=== PATIENT | female | born 1935 | race Caucasian/White ===

== ENCOUNTER → 2017-01-01 | Outpatient (CLI) | payer OTHER ==
[~2017-01-01] VITALS: Ht 154.9 cm; Wt 67.1 kg
[~2017-01-01] MED LIST: ACETAMINOPHEN325 M1 PO; ALEVE220 MG PO; AMITRIPTYLINE H25 M4 PO; AZITHROMYCIN 2250 MG PO; CENTRUM COMPLE1 EACH PO; COLACE100 MG PO; CYCLOBENZAPRINE10 MG PO; ESTER-C 1,0001 EACH PO; ESTER-C 500 MG1 EAC1 PO; HYDROCODONE-AP1 EAC6 PO; LISINOPRIL5 MG PO; MELOXICAM7.5 MG PO; MUCINEX TA600 MG/TA2 PO; NABUMETONE 500500 M1 PO; NAPROSYN250 MG PO; NEURONTIN 300300 M1 PO; NEURONTIN600 MG PO; NORCO 5-325 TA1 EACH PO; OS-CAL 500+D C1 EACH; PERCOCET 5-3251 EACH PO; ROXICODONE5 MG PO; TRAMADOL 50 MG50 MG PO; VITAMIN D400 UNI1 PO; ZOCOR 10 MG TAB10 MG PO
--- NOTE | ~2017-01-01 | HPC ---
[facility] [address] [place] [address] PAIN MANAGEMENT CONSULTATION Name: MISTY LEVI Room #: REG [facility].#: [id number] Admission: 01/01/17 Attend Phys: Aurelio Koehler DO Discharge: Date of : 37 Report #: [id number] THIS REPORT FOR: //name// CC: Cyrus Koehler DATE OF SERVICE: 01/01/2017 CHIEF COMPLAINT: Low back pain and left lower extremity pain and paresthesias. HISTORY OF PRESENT ILLNESS: As you know, the patient is a very pleasant 81-year-old female who returns today in followup visit, having received precertification to undergo epidural injection under fluoroscopic guidance. The patient is placing a pain score today at approximately 8/10; states her pain is aching, numbness, tingling and burning in sensation; exacerbated with standing, walking, sitting and lying down; improves with epidural injections. She returns today requesting this epidural injection for which we received precertification. ALLERGIES: PROPOXYPHENE, MORPHINE, SULFA, HYDROCODONE. CURRENT MEDICATIONS: Naproxen, guaifenesin, vitamin D, ascorbic acid, simvastatin, lisinopril. SOCIAL HISTORY: The patient denies tobacco, alcohol, IV or illicit drug use. 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 She is working, not receiving workmen's compensation, unaccompanied today. IMAGING: No new imaging available. PHYSICAL EXAMINATION: VITAL SIGNS: Blood pressure 123/65, pulse 78, respiratory rate 18, unlabored. The patient is 98% on room air. Height 5 feet 1 inch tall, weight 148 pounds, BMI calculated 28. GENERAL: Well-developed, well-nourished, well-hydrated 81-year-old female appearing stated age, placing current pain score at 8/10. HEENT: Normocephalic, atraumatic. Pupils equal, round, reactive to light. Speech is fluent. EXTREMITIES: Show no clubbing, no cyanosis, no edema. MUSCULOSKELETAL: Lower extremity strength equal and symmetrical 5/5, some slight giveaway strength noted with hip flexion, knee extension on the left when compared to the right. This is due to pain generation. Seated straight leg raising negative. Supine straight leg raising positive on the left. ASSESSMENT: 1. Symptomatic lumbar radiculopathy. [facility] [address] [place] [address] PAIN MANAGEMENT CONSULTATION Name: MISTY LEVI SPENSER Room #: REG CLI [facility]#: [id number] Admission: 01/01/17 Attend Phys: Aurelio Koehler DO Discharge: Date of : 36 Report #: [id number] 2. Severe and progressively worsening spinal stenosis of lumbar spine. 3. Displacement of lumbar intervertebral disk with radiculopathy. 4. Lumbosacral spondylosis with radiculopathy. 5. Facet arthropathy of the lumbar spine. 6. Chronic intractable pain. PLAN: 1. The patient returns today in followup visit, having received precertification to undergo epidural injection under fluoroscopic guidance. The patient was advised of the risks and the benefits of this requested epidural injection. These risks include but not necessarily limited to bleeding, bruising, infection, worsening pain, no relief of pain, also risk of temporary or permanent muscle weakness, temporary or permanent nerve damage, possible paralysis and . The patient states understood and wished to proceed. 2. No medication changes were made at today's visit. The patient to continue current medical therapy as previously prescribed. 3. The patient will return to our clinic on an as-needed basis for next in a series of epidural injections. DESCRIPTION OF PROCEDURE: L5-S1 left paramedian epidural steroid injection under fluoroscopic guidance. After obtaining written consent, the patient was taken back to fluoroscopy suite, placed in prone position with pillow under abdomen to decrease lumbar lordosis. Skin overlying lumbosacral area then prepped and draped in aseptic fashion. Lumbar intervertebral spaces were identified by AP fluoroscopy. Skin and subcutaneous tissue overlying target site of injection was anesthetized with 3 mL of 1% lidocaine. A 20-gauge 3-1/2 inch Tuohy needle advanced under fluoroscopic guidance towards the epidural space using a left paramedian approach. Epidural space identified using loss of resistance to air technique. After negative aspiration for heme or cerebrospinal fluid, 1 mL of Omnipaque was injected. Lumbar epidurogram was confirmed using both AP and lateral fluoroscopy. After negative aspiration for heme or cerebrospinal fluid, 5 mL of a solution containing 2 mL 40 mg per mL, 80 mg total triamcinolone, 3 mL lidocaine 1% injected slowly. Needle retracted [facility], needle tract flushed with 3 mL 1% lidocaine. Needle then removed. Sterile bandage placed over injection site. No new motor deficits present in the lower extremity following procedure. The patient tolerated procedure well, carefully escorted to the recovery in [facility] [address] [place] [address] PAIN MANAGEMENT CONSULTATION Name: MISTY LEVI Room #: REG [facility]#: [id number] Admission: 01/01/17 Attend Phys: Aurelio Koehler DO Discharge: Date of : 37 Report #: [id number] stable condition. No apparent complications. After meeting discharge criteria, the patient discharged home. <ELECTRONICALLY SIGNED> By: Aurelio Koehler DO 01/02/17 0811 [id number] Aurelio Koehler DO /nt
[2017-01-01 14:10] VITALS: BP 123/65
== END | disposition home or self-care (01) ==
LOC: PAIN 06:35
DX: M51.16 Intervertebral disc disorders with radiculopathy, lumbar region (principal); M48.061 Spinal stenosis, lumbar region without neurogenic claudication; M47.27 Other spondylosis with radiculopathy, lumbosacral region; G89.29 Other chronic pain; Z88.8 Allergy status to other drugs, medicaments and biological substances; Z79.899 Other long term (current) drug therapy

== ENCOUNTER → 2017-11-27 | Outpatient (CLI) | payer OTHER, SELFPAY ==
[~2017-11-27] VITALS: Ht 154.9 cm; Wt 66.3 kg
[~2017-11-27] MED LIST changes: +VALACYCLOVIR1000 MG PO
--- NOTE | ~2017-11-27 | HPC ---
[facility] [address] [place] [address] PAIN MANAGEMENT CONSULTATION Name: MISTY LEVI Room #: REG [facility].#: [id number] Admission: 11/27/17 Attend Phys: Aurelio Koehler DO Discharge: Date of : 37 Report #: [id number] THIS REPORT FOR: //name// CC: Cyrus Koehler DATE OF SERVICE: 11/27/2017 REFERRING PHYSICIAN: Cyrus Marlow MD CHIEF COMPLAINT: Low back pain, left lower extremity pain with paresthesias, intermittent right lower extremity pain. HISTORY OF PRESENT ILLNESS: As you know, the patient is a very pleasant 82-year-old female who returns today in followup visit with recurrent lumbar radicular symptoms. Majority of the patient's pain begins in low back, radiates down the left leg, but periodically, has now been presenting on the right side. She returns today in followup visit requesting to undergo epidural injection under fluoroscopic guidance. The patient, as you are aware, has done very well with previous epidural injections. She reports the last injection provided pain relief of approximately 80% lasting for a long period of time. She is now reporting pain score of 10/10. She indicates no new injury, no new trauma that led to symptom recurrence. She states her pain is aching, numbness, tingling and burning in sensation, exacerbated with standing, walking, sitting and lying down, improves with epidural injections. She returns today in followup visit with 10/10 pain, requesting epidural injection. ALLERGIES: PROPOXYPHENE, MORPHINE, SULFA AND HYDROCODONE. CURRENT MEDICATIONS: Naproxen sodium, vitamin D, ascorbic acid, simvastatin, lisinopril. SOCIAL HISTORY: The patient denies tobacco, alcohol, IV or illicit drug use. 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 She is unaccompanied today. IMAGING: No new imaging available. PQRS, the patient has known osteoarthritis of the low back, bilateral hips, no rheumatoid arthritis. She is placing pain intensity of 10/10. She is not a fall risk, has not had a fall in the last 3 months. She is not on blood thinners, but history of hypertension. She is not on any chronic opioid. She has a low opioid addiction potential. Her pain impact score is 64/70 near complete interference of daily activities secondary to pain. [address] [address] PAIN MANAGEMENT CONSULTATION Name: MISTY LEVI [facility] [id number] Admission: 11/27/17 Attend Phys: Aurelio Koehler DO Discharge: Date of : 37 Report #: [id number] PHYSICAL EXAMINATION: VITAL SIGNS: Blood pressure 125/73, pulse is 80, respiratory rate 16 and unlabored. The patient is 98% on room air. Height 5 feet 1 inch tall, weight 146.2 pounds, BMI calculated at 27.6. GENERAL: Well-developed, well-nourished, well-hydrated 82-year-old female appearing her stated age, placing current pain score at 10/10. HEENT: Normocephalic, atraumatic. Pupils equal, round and reactive to light. EXTREMITIES: Show no clubbing, no cyanosis, no edema. MUSCULOSKELETAL: Lower extremity strength is equal and symmetrical 5/5. Slight giveaway strength noted with hip flexion on the left when compared to the right. Seated straight leg raising negative. Supine straight leg raising positive on the left. Sunitha's test negative. Gait mildly antalgic favoring left lower extremity over right. Muscle bulk and tone equal and symmetrical in lower extremities, intact to light touch from L1 through S2 dermatomes. ASSESSMENT: 1. Symptomatic lumbar radiculopathy. 2. Severe and progressively worsening spinal stenosis of the lumbar spine. 3. Displacement of lumbar intervertebral disk with radiculopathy. 4. Lumbosacral spondylosis with radiculopathy. 5. Facet arthropathy of the lumbar spine. 6. Chronic intractable pain. PLAN: 1. The patient returns today in followup visit with 10/10 pain, describing recurrent lumbar radicular symptoms. She relays no trauma or injury that may have led to recurrence of pain. She returns today requesting a lumbar epidural injection under fluoroscopic guidance. We were able to obtain authorization from the patient's third constitution party payer today and she has been consented to undergo the procedure. She has been advised of the risks and the benefits of a lumbar epidural injection. These risks include but are not necessarily limited to bleeding, bruising, infection, worsening pain, no relief of pain, also risk of temporary or permanent muscle weakness, temporary or permanent nerve damage, possible paralysis and . The patient states understood and wished to proceed. 2. No medication changes made at today's visit. The patient will continue current medical therapy as previously prescribed. 3. We will see the patient back in followup visit on an as needed basis for the next in the series of epidural injections. PROCEDURE NOTE DESCRIPTION OF PROCEDURE: L5-S1 left paramedian epidural steroid injection under fluoroscopic guidance. After obtaining written consent, the patient was taken back to fluoroscopy [address] [address] PAIN MANAGEMENT CONSULTATION Name: MISTY LEVI Room #: REG [facility]#: [id number] Admission: 11/27/17 Attend Phys: Aurelio Koehler DO Discharge: Date of : 36 Report #: [id number] suite, placed in prone position with pillow under abdomen to decrease lumbar lordosis. Skin overlying lumbosacral area was then prepped and draped in aseptic fashion. The L5-S1 vertebral interspace identified by AP fluoroscopy. Skin and subcutaneous tissue overlying target site of injection was anesthetized with 3 mL of 1% lidocaine. A 20-gauge 3-1/2 inch Tuohy needle advanced under fluoroscopic guidance towards the epidural space using a left paramedian approach. Epidural space identified using loss of resistance to air technique. After negative aspiration for heme or cerebrospinal fluid, 1 mL of Omnipaque injected. A lumbar epidurogram was confirmed using both AP and lateral fluoroscopy. After negative aspiration for heme or cerebrospinal fluid, 5 mL of a solution containing 2 mL 40 mg per mL, 80 mg total triamcinolone, 3 mL lidocaine 1% injected slowly. Needle retracted [facility], flushed with 1 mL of 1% lidocaine and removed. Sterile bandage placed over injection site. No new motor deficits present in the lower extremities following procedure. The patient tolerated the procedure well, carefully escorted to recovery room in stable condition. No apparent complications. After meeting our discharge criteria, the patient discharged home. <ELECTRONICALLY SIGNED> By: Aurelio Koehler DO 11/29/17 0734 [id number] Aurelio Koehler DO /rito
[2017-11-27 09:31] VITALS: BP 125/73
== END | disposition home or self-care (01) ==
LOC: PAIN 07:01
DX: M51.16 Intervertebral disc disorders with radiculopathy, lumbar region (principal); M48.061 Spinal stenosis, lumbar region without neurogenic claudication; M47.27 Other spondylosis with radiculopathy, lumbosacral region; M12.88 Other specific arthropathies, not elsewhere classified, other specified site; G89.29 Other chronic pain; I10 Essential (primary) hypertension; Z88.2 Allergy status to sulfonamides; Z88.8 Allergy status to other drugs, medicaments and biological substances; Z79.899 Other long term (current) drug therapy; Z96.643 Presence of artificial hip joint, bilateral

== ENCOUNTER 2019-10-11 08:49 | Emergency (ER) | payer OTHER ==
[~2019-10-11] VITALS: Ht 154.9 cm; Wt 63.5 kg
[2019-10-11] MEDS ORDERED: TRAMADOL 50 MG50 MG PO (10:30)
[2019-10-11 10:59] VITALS: BP 146/76
== END 2019-10-11 10:59 | disposition home or self-care (01) ==
LOC: ER 08:49
DX: S42.411A Displaced simple supracondylar fracture without intercondylar fracture of right humerus, initial encounter for closed fracture (principal); S09.90XA Unspecified injury of head, initial encounter; I10 Essential (primary) hypertension; E78.5 Hyperlipidemia, unspecified; Z90.89 Acquired absence of other organs; Z88.2 Allergy status to sulfonamides; Z88.5 Allergy status to narcotic agent; Z88.8 Allergy status to other drugs, medicaments and biological substances; W10.9XXA Fall (on) (from) unspecified stairs and steps, initial encounter; Y93.89 Activity, other specified; Y92.89 Other specified places as the place of occurrence of the external cause; Y99.8 Other external cause status